=== PATIENT | female | born 1985 | race Caucasian/White ===

== ENCOUNTER 2018-03-18 10:52 | Day surgery (SDC) | payer OTHER ==
[~2018-03-18] VITALS: Ht 157.5 cm; Wt 28.0 kg
[2018-03-18 11:17] VITALS: BP 118/88; PULSE 108; TEMP 97.5
[2018-03-18] MEDS ORDERED: ULTRAM 50MG TAB50 MG PO (11:30)
[2018-03-18] MEDS ORDERED: NORCO 325 MG-51 TAB PO (11:30)
[2018-03-18] MEDS ORDERED: AMBIEN 5MG TABLE5 MG PO (11:31)
[2018-03-18] MEDS ORDERED: VTAMINC250TA PO (11:31)
[2018-03-18] MEDS ORDERED: VITAMIN D IJ (11:32)
[2018-03-18 13:05] VITALS: BP 113/83; PULSE 83; TEMP 97.5
--- NOTE | 2018-03-18 13:05 | NUR ---
Pt to [facility] via cart from ENDO. Pt drowsy and weak. Decision made to leave pt on cart to rest. and family in room. VSS. Pt denies nausea. Will continue to monitor. Call light within reach. Warm blanket provided.
[2018-03-18 13:20] VITALS: BP 107/84; PULSE 78
--- NOTE | 2018-03-18 13:20 | NUR ---
Pt continues to rest. Dozing on and off. at bedside.
[2018-03-18 13:35] VITALS: BP 118/102; PULSE 109
--- NOTE | 2018-03-18 13:35 | NUR ---
Pt continues to rest. Denies needs. Call light within reach.
[2018-03-18 13:55] VITALS: BP 131/97; PULSE 96
--- NOTE | 2018-03-18 13:55 | NUR ---
Discharge instructions reviewed. Pt and voice understanding. IV site discontinued with all parts intact. Pt up to dress with assistance from . Call light within reach.
--- NOTE | 2018-03-18 14:15 | NUR ---
Pt escorted to private car via wheel chair. Pt accompanied home by her .
== END 2018-03-18 14:15 | disposition home or self-care (01) ==
LOC: SDCO 10:52
DX: K21.0 Gastro-esophageal reflux disease with esophagitis (principal); K25.7 Chronic gastric ulcer without hemorrhage or perforation; K63.4 Enteroptosis; Z85.72 Personal history of non-Hodgkin lymphomas; K59.00 Constipation, unspecified; F41.9 Anxiety disorder, unspecified; D64.9 Anemia, unspecified; Z83.79 Family history of other diseases of the digestive system; Z90.49 Acquired absence of other specified parts of digestive tract
CPT/HCPCS: J2250; J3010; J7030